=== PATIENT | female | born 1955 | race Caucasian/White ===

== ENCOUNTER 2024-06-02 09:44 | Outpatient (CLI) | payer MEDICARE, OTHER | END 2024-06-02 23:59 | disposition home or self-care (01) | LOC: MRI02 09:44 | PROVIDERS: ATTEND Nurse Practitioner Adult Health | DX: M47.816 Spondylosis without myelopathy or radiculopathy, lumbar region (principal); M48.061 Spinal stenosis, lumbar region without neurogenic claudication; M43.06 Spondylolysis, lumbar region | CPT/HCPCS: 72148 ==